=== PATIENT | female | born 1970 | race Caucasian/White ===

== ENCOUNTER 2016-06-17 06:38 | Day surgery (SDC) | payer MEDICAID ==
[2016-06-17] MEDS ORDERED: Sodium Chloride 0.9% 1,000 ML IV SCH (07:00)
[2016-06-17] MEDS ORDERED: Sodium Chloride 0.9% 10 ML ONE (07:03)
[2016-06-17] MEDS: Lidocaine 1% with EPINEPHrine 1:100,000 50 ML MDV ONE ×2 (07:31→08:35)
[2016-06-17] MEDS: Sodium Tetradecyl Sulfate 1% 20 MG/2 ML SDV ONE ×3 (07:32→08:47)
[2016-06-17] MEDS ORDERED: Midazolam 1 MG/ML 2 ML SDV ONE ×2 (07:49→08:04)
[2016-06-17] MEDS ORDERED: Propofol 200 MG/20 ML SDV ONE ×6 (07:49→08:56)
[2016-06-17] MEDS ORDERED: fentaNYL 100 MCG/2 ML SDV ONE ×2 (07:49→08:24)
[2016-06-17] MEDS: Lidocaine 1% w/EPINEPHrine 50 ML, Sodium Bicarbonate 5 MEQ in Sodium Chloride 0.9% 950 ML INJECT SCH ×2 (08:08→08:11)
[2016-06-17] MEDS ORDERED: Midazolam 1 MG/ML 5 ML SDV ONE (08:10)
[2016-06-17] MEDS ORDERED: Acetaminophen/HYDROcodone 325-5 MG Tab PO PRN (10:15)
[2016-06-17] MEDS ORDERED: Ibuprofen 600 MG Tab PO ONE (10:25)
[2016-06-17 10:30] VITALS: BP 131/84
[2016-06-17] MEDS ORDERED: Lactated Ringers 1,000 ML ONE (11:26)
--- NOTE | 2016-06-18 11:33 | OR ---
DATE OF PROCEDURE: 06/17/2016 PROCEDURE: 1. Radiofrequency ablation of right greater saphenous vein. 2. Radiofrequency ablation of left greater saphenous vein. 3. Radiofrequency ablation of left jacquard twine polisher operator. 4. Sclerotherapy, left leg, multiple. 5. Sclerotherapy, right leg, multiple. COMPLICATIONS: None. FAMILY AND CONSUMER EDUCATION TEACHER: None. PREOPERATIVE DIAGNOSIS: Venous/varicose vein insufficiency with inflammation and pain. POSTOPERATIVE DIAGNOSIS: Venous/varicose vein insufficiency with inflammation and pain. INDICATION: Risks, benefits, alternatives, and limitations, including, but not limited to infection, bleeding, DVT formation, chronic pain, or scar formation along with pigmentation were explained to the patient and wished to proceed. PROCEDURE IN DETAIL: The patient was placed in a supine position. The left GSV was accessed at the level of the ankle. This was accessed via 21-gauge needle exchanged for a 35,000 wire, then exchanged for a 7-Bulgarian sheath. The RFA probe was advanced to 3 cm from the saphenous femoral junction. Tumescent fluid was injected in 1 cm jacket around this was verified at second and third time. Direct even pressure was held as the RFA probe was deployed x2 proximally and distally, and x1 in all other segments. The sheath and device were then removed, and Dermabond was applied after direct pressure was held for 10 minutes. Radiofrequency ablation was then performed in the right leg, same manner, same fashion, same technique, in the same sequence using the same equipment. Except initial access point was at the distal calf. The due tortuosity and second access point would be accessed below-the- knee on the right side. The jacquard twine polisher operator on the left leg was readily identified. This would be ablated by introducing the RFA probe through an anesthetized nghia in the skin. Impedance was 234 with blood through the stylet. Tumescent fluid was injected around this and then the probe was subsequently deployed. The impedance remained nominal during the entire procedure. This was also removed, and Dermabond was applied. Sclerotherapy was then performed in left and right legs. There were 6 on the right and 5 on the left. This was all using 0.33% sodium tetradecyl, now withdrawn back to ensure intravascular injection only. No more than 2 mL was injected in one location. Dressings were applied. The patient tolerated the procedure well. Joseph Lucio MD /[id number]
== END 2016-06-17 11:05 | disposition home or self-care (01) ==
LOC: JP.SDS 06:38
PROVIDERS: ATTEND Surgery
DX: I87.2 Venous insufficiency (chronic) (peripheral) (principal); I83.813 Varicose veins of bilateral lower extremities with pain; I83.11 Varicose veins of right lower extremity with inflammation; I83.12 Varicose veins of left lower extremity with inflammation; Z88.8 Allergy status to other drugs, medicaments and biological substances; Z91.011 Allergy to milk products; E03.9 Hypothyroidism, unspecified; Z87.891 Personal history of nicotine dependence
CPT/HCPCS: 36471; 36475; 36476; A9270; J1642; J2250; J2704; J3010; J7040; J7050; J7120; J3490

== ENCOUNTER 2020-04-03 17:22 | Emergency (ER) | payer MEDICAID ==
[2020-04-03 17:40] VITALS: BP 111/75; PULSE 79
--- NOTE | 2020-04-03 18:04 | EDM.PDOC ---
ED HPI GENERAL MEDICAL PROBLEM - General Chief Complaint: Skin Complaint Stated Complaint: BLISTER ON NOSE Time Seen by Provider: 04/03/20 17:55 Source of Information: Reports: Patient, RN Notes Reviewed History Limitations: Reports: No Limitations - History of Present Illness INITIAL COMMENTS - FREE TEXT/NARRATIVE: 50-year-old female presents emergency department today with a rash underneath her right nare states had this for a couple of days it never developed vesicles just had a crusty honey colored area over it she did remove the scab it is quite painful Right Nare Pain Score (Numeric/FACES): 4 - Related Data Allergies Allergy/AdvReac Type Severity Reaction Status Date / Time casein Allergy Hives Verified 04/03/20 17:42 Dairy Products Allergy Hives Verified 04/03/20 17:42 enoxaparin [From Lovenox] Allergy Tachycardia Verified 04/03/20 17:42 mold Allergy Difficulty Verified 04/03/20 17:42 Breathing naproxen [From Aleve] Allergy Tachycardia Verified 04/03/20 17:42 Home Meds: Home Meds Cholecalciferol (Vitamin D3) [Vitamin D3] 20,000 units PO DAILY 06/17/16 [History] Magnesium Oxide/Mag AA Chelate [Magnesium] 300 mg PO DAILY 06/17/16 [History] Phytonadione [Vitamin K] 100 mcg PO DAILY 06/17/16 [History] Selenium 200 mg PO DAILY 06/17/16 [History] Levothyroxine Sodium [Tirosint] 88 mcg PO DAILY 04/03/20 [History] Liothyronine Sodium 5 mcg PO DAILY 04/03/20 [History] Liothyronine Sodium 10 mcg PO DAILY 04/03/20 [History] Mupirocin Oint [Bactroban Oint] 22 gm TP TID #1 tube 04/03/20 [Rx] Past Medical History HEENT History: Reports: Otitis Media Cardiovascular History: Reports: Other (See Below) Other Cardiovascular History: palpatations r/t thyroid issue Gastrointestinal History: Reports: Chronic Constipation, GERD, Hemorrhoids ALTERATION WORKER History: Reports: Polycystic Ovaries, Musculoskeletal History: Reports: Back Pain, Chronic, Other (See Below) Other Musculoskeletal History: broken nose Neurological History: Reports: Headaches, Chronic Psychiatric History: Reports: Anxiety Endocrine/Metabolic History: Reports: Other (See Below) Other Endocrine/Metabolic History: Hashimotos thyroid disease Hematologic History: Reports: B12 Deficiency, Other (See Below) Other Hematologic History: ferritin low - Past Surgical History GI Surgical History: Reports: Other (See Below) Other GI Surgeries/Procedures: abominalplasty Female Surgical History: Reports: Breast Reduction, Section Social & Family History - Tobacco Use Tobacco Use Status *Q: Never Tobacco User - Caffeine Use Caffeine Use: Reports: None Other Caffeine Use: rarely - Recreational Drug Use Recreational Drug Use: No ED ROS GENERAL - Review of Systems Review Of Systems: See Below Skin: Reports: Rash ED EXAM, SKIN/RASH Exam: See Below Text/Narrative:: Examination of the integument system around the face underneath the right nare I do appreciate honey crusted colored scab erythema I do not appreciate any vesicles very tender to the touch Exam Limited By: No Limitations General Appearance: Alert, WD/WN, No Apparent Distress Course - Vital Signs Last Recorded V/S: Last Vital Signs Temp 98.3 F 04/03/20 17:46 Pulse 79 04/03/20 17:46 Resp 16 04/03/20 17:46 BP 111/75 04/03/20 17:46 Pulse Ox 97 04/03/20 17:46 Departure - Departure Time of Disposition: 18:04 Disposition: Home, Self-Care 01 Condition: Fair Clinical Impression: Impetigo - Discharge Information Prescriptions: Mupirocin Oint [Bactroban Oint] 22 gm TP TID #1 tube Instructions: Impetigo, Adult Referrals: PCP,None [Primary Care Provider] - Additional Instructions: Prescription for antibiotics has been sent to [facility] in [place], use this medication until clear, please followup with your primary care provider in 5-7 days if not better, please call return to the emergency department with worsening of symptoms. Sepsis Event Note (ED) - Evaluation Sepsis Screening Result: No Definite Risk - Focused Exam Vital Signs: Vital Signs Temp Pulse Resp BP Pulse Ox 04/03/20 17:46 98.3 F 79 16 111/75 97 04/03/20 17:39 98.3 F 79 16 111/75 97 - Assessment/Plan Plan: Assessment Acuity = acute Site and laterality = impetigo right nare Etiology = probable bacterial cause Manifestations = none Location of injury = Home Lab values = none Plan Empiric treatment mupirocin ointment 2% applied to affected area 3 times daily till clear follow-up primary care 5 to 7 days not better This note was dictated using [employer] voice recognition software please call with any questions on syntax or grammar.
== END 2020-04-03 18:17 | disposition home or self-care (01) ==
LOC: JP.ED 17:22
DX: L01.00 Impetigo, unspecified (principal); E06.3 Autoimmune thyroiditis; Z79.899 Other long term (current) drug therapy; Z91.011 Allergy to milk products; Z91.048 Other nonmedicinal substance allergy status; Z88.8 Allergy status to other drugs, medicaments and biological substances
CPT/HCPCS: 99282; 99283